=== PATIENT | female | born 1990 | race Caucasian/White ===

== ENCOUNTER 2017-01-14 21:45 | Inpatient (IN) ==
[2017-01-14] MEDS ORDERED: hydrOXYzine pamoate 25 MG CAPSULE PO PRN (22:15)
[2017-01-14] MEDS ORDERED: *HR* LORazepam 2 MG/ML VIAL IM PRN (22:15)
[2017-01-14] MEDS ORDERED: Mag Hydrox/Al Hydrox/Simeth 30 ML UDC PO PRN (22:15)
[2017-01-14] MEDS ORDERED: MOM Conc 10 ML UD.LIQ PO PRN (22:15)
[2017-01-14] MEDS ORDERED: Haloperidol Lactate 5 MG/ML VIAL IM PRN (22:15)
[2017-01-14] MEDS: traZODone 50 MG TABLET PO PRN (23:13)
--- NOTE | 2017-01-15 11:02 | Psychiatry History & Physical ---
Date of Encounter: 01/15/17 Time of Encounter: 10:00 History of Present Illness Patient Stated Chief Complaint: Suicidal, mood swings Medicare Admission Attestation: For traditional Medicare patients the provided hospital inpatient services are reasonable and necessary and in the case of services not specified as inpatient -only under 42 CFR 419.22 (n), that they are appropriately provided as inpatient services in accordance 42 CFR 412.3. For Critical Access Hospital the patient may reasonably be expected to be discharged or transferred to a hospital within 96 hours after admission to the Critical Access Hospital. Admitted From: Hospital to Hospital Transfer ([facility]) History of Present Illness: Ms. Garcia is a 26 year old female admitted from [facility] for evaluation of suicidal ideation and more swings with irritability. Patient experienced increasing irritability and mood swings and started having suicidal ideation with intent to cut her wrists or overdose on medication. Patient has been seen by a mental health counselor and started on Paxil by her family doctor but has not been seen by psychiatrist yet. Patient stated that she started having more changes was an anxiety since she was 20 years old, she had no previous hospitalization or psychiatric treatment. Patient denies any past suicide attempts. Patient described manic episodes with increased energy and irritability and hypersexuality. She also can have depressed episodes with low energy and depressed mood lack of motivation and a sense of hopelessness. Patient has significant family history of bipolar in both parents and history of suicide in a grandparent. She has high school education some college currently unemployed she is and she has 2 children. She denies smoking or drinking alcohol or drugs except using opiates on and off. Past Med Surg Social Fam HX - Past Medical History Medical history: no medical history - Past Psychiatric History Psychiatric history: Reports: no psych history - Social History Smoking Status: Never smoker Smokeless Tobacco Status: No Alcohol use: none Drug use: opiates Medications & Allergies Paroxetine HCl [Paxil] 40 mg PO DAILY 01/14/17 [History] Cetirizine HCl [Cetirizine HCl] 10 mg PO DAILY 01/15/17 [History] Allergies Hydromorphone [From Dilaudid] Allergy (Verified 01/11/17 18:27) Drowsy propranolol Allergy (Verified 01/11/17 18:27) Rash Review of Systems Psychiatric: Reports: depression, anxiety, abnormal sleep pattern, suicidal ideation, irritability, mood swings Mental Status Exam Patient orientation: Yes Person, Yes Time, Yes Place Level of alertness: Alert Patient appearance: Appropriate, Well Groomed Behavior: calm, cooperative Psychomotor activity: Normal Eye contact: Avoids Eye Contact Mood description: Euthymic/stable, Anxious, Labile Affect description: congruent with mood, labile Speech pattern: Normal rate, Normal rhythm, Normal tone Speech volume: Normal Thought process: Linear, Goal Oriented Thought content: Yes Suicidal ideation, No Homicidal ideation, No Overt delusions Perceptual disturbances: No Auditory hallucinations, No Visual hallucinations Attention span: Capable of Focused Attention Memory description: Grossly Intact Patient reliability: Reliable Historian Intelligence estimate: Average Judgment: Limited Insight: Partial Results - Vital Signs Vital signs: Temp Pulse Resp BP 97.5 F L 81 16 121/88 01/15/17 08:32 01/15/17 08:32 01/15/17 08:32 01/15/17 08:32 Assessment and Plan (1) Bipolar disorder, curr episode mixed, severe, w/o psychotic features Current visit: Yes Status: Acute Plan: Admit inpatient for safety and stabilization, Close observation, Suicide Precautions per unit protocol, Encourage participation in unit milieu, Group Therapy, Monitor sleep, Monitor appetite Additional Plan: Will add mood stabilizer Topamax 50 mg daily. Benefits and side effects were discussed she is agreeable to start and will monitor. Risks, benefits, side effects, alternatives discussed w/pt: Yes Patient agreeable to treatment: Yes Estimated Length of Stay (Days): 5
[2017-01-15] MEDS: Ibuprofen 400 MG TABLET PO PRN ×2 (15:09→21:35)
[2017-01-15] MEDS: Topiramate 25 MG TABLET PO SCH (15:42)
[2017-01-15] MEDS: traZODone 50 MG TABLET PO PRN ×2 (20:40→22:22)
[2017-01-15] MEDS: *HR* LORazepam 1 MG TABLET PO PRN (22:57)
[2017-01-16] MEDS: Topiramate 25 MG TABLET PO SCH (09:55)
--- NOTE | 2017-01-16 11:29 | Psychiatry Progress Note ---
Date of Encounter: 01/16/17 Time of Encounter: 11:00 Subjective Interval history: Patient is here for follow-up. She reports difficulty sleeping, also she had an episode of anxiety and was given lorazepam and it helped. She tell me that she has not anxiety or panic attacks on and off about twice a week, she believe its not triggered. Episodes may last about 15 minutes. She denied any side effects from medication and denies any suicidal ideation. She started participating in groups and activities and feel less anxious in groups. She was educated about bipolar disorder and medication compliance. Review of Systems Psychiatric: Reports: depression, anxiety, abnormal sleep pattern, suicidal ideation, irritability, mood swings Objective: Exam Patient orientation: Yes Person, Yes Time, Yes Place Level of alertness: Alert, Sedated Patient appearance: Appropriate, Well Groomed Behavior: calm, cooperative Psychomotor activity: Normal Eye contact: Maintains Eye Contact Mood description: Euthymic/stable Affect description: congruent with mood, full range Speech pattern: Normal rate, Normal rhythm, Normal tone Speech volume: Normal Thought process: Linear, Goal Oriented Thought content: No Suicidal ideation, No Homicidal ideation, No Overt delusions Perceptual disturbances: No Auditory hallucinations, No Visual hallucinations Judgment: Fair Insight: Partial Results - Vital Signs Vital Signs: Temp Pulse Resp BP 97.4 F L 84 16 114/78 01/16/17 09:00 01/16/17 09:00 01/16/17 09:00 01/16/17 09:00 Assessment and Plan (1) Bipolar disorder, curr episode mixed, severe, w/o psychotic features Current visit: Yes Status: Acute Plan: Continue hospitalization, Close observation, Suicide Precautions per unit protocol, Encourage participation in unit milieu, Group Therapy, Monitor sleep, Monitor appetite Additional Plan: Will increase trazodone to 100 mg at bedtime when necessary. Risks, benefits, side effects, alternatives discussed w/pt: Yes Patient agreeable to treatment: Yes Consult Discharge Plan - Plan Referrals: NO,PCP [Primary Care Provider] -
[2017-01-16] MEDS ORDERED: traZODone 50 MG TABLET PO PRN (11:31)
[2017-01-16] MEDS: Ibuprofen 400 MG TABLET PO PRN ×2 (11:49→21:31)
[2017-01-16] MEDS: *HR* LORazepam 1 MG TABLET PO PRN (20:50)
[2017-01-17] MEDS: Topiramate 25 MG TABLET PO SCH (09:38)
[2017-01-17 10:18] VITALS: BP 114/84
--- NOTE | 2017-01-17 13:38 | Discharge Summary ---
Date of Encounter: 01/17/17 Time of Encounter: 13:34 Diagnosis - Discharge Diagnosis (1) Bipolar disorder, curr episode mixed, severe, w/o psychotic features Status: Acute Medications - Discharge Medications Prescriptions: Cetirizine HCl 10 mg PO DAILY #30 tablet HydrOXYzine Pamoate 25 mg PO TID PRN #90 capsule PRN Reason: Anxiety Paroxetine HCl [Paxil] 40 mg PO DAILY #30 tablet Topiramate [Topamax] 50 mg PO DAILY #60 tablet TraZODone 100 mg PO HS PRN #60 tablet PRN Reason: Insomnia Cetirizine HCl 10 mg PO DAILY #30 tablet 01/17/17 [Rx] HydrOXYzine Pamoate 25 mg PO TID PRN #90 capsule 01/17/17 [Rx] Paroxetine HCl [Paxil] 40 mg PO DAILY #30 tablet 01/17/17 [Rx] Topiramate [Topamax] 50 mg PO DAILY #60 tablet 01/17/17 [Rx] TraZODone 100 mg PO HS PRN #60 tablet 01/17/17 [Rx] Allergies Hydromorphone [From Dilaudid] Allergy (Verified 01/11/17 18:27) Drowsy propranolol Allergy (Verified 01/11/17 18:27) Rash Provider Date of admission: 01/14/17 22:15 Primary care physician: PCP AGATHA Discharging clinician: Yenny Hills Assessment and Plan - Patient/Caregiver Discharge Instructions Activity: resume usual activities as tolerated Diet: regular diet - Follow up Plan Follow up with: AGATHA,PCP [Primary Care Provider] - Functional capacity at discharge: independent ambulation Overall status at discharge: Stable Disposition: Home, Self-Care Hospital Course Hospital course: Ms. Garcia is a 26 year old female who was admitted secondary to anxiety, depression and suicidal ideation. She was working with a counselor and she was waiting to see a psychiatrist but felt she should get on medications sooner than her appointment was scheduled for. She reported starting treatment for depression and anxiety at the age of 20 years and had started Paxil three months ago with some benefit. Topamax was added to her medication regimen this admission with positive results. She also took prn Vistaril and Trazodone with positive results. She lives with her slime ad reports he is supportive. The director social welfare spoke with her fiancee and he has no concerns with her coming home. She also reports her family is supportive of her as well. On exam she was pleasant with no signs of psychosis or major mood disturbance. She specifically denied any suicidal or homicidal ideation. - Time Spent with Patient Total time spent providing and/or coordinating discharge services: Quality - Multiple Antipsychotics Patient discharged on 2 or more antipsychotic medications: No Mental Status Exam - Mental Status Exam Patient orientation: Yes Person, Yes Time, Yes Place Level of alertness: Alert Patient appearance: Appropriate, Well Groomed Behavior: calm Psychomotor activity: Normal Eye contact: Maintains Eye Contact Mood description: Euthymic/stable Affect description: congruent with mood, full range Speech pattern: Normal rate, Normal rhythm, Normal tone Speech Volume: Normal Thought process: Linear, Goal Oriented Thought Content: No Suicidal ideation, No Homicidal ideation, No Overt delusions Perceptual Disturbances: No Auditory hallucinations, No Visual hallucinations Judgment: Fair Insight: Partial
== END 2017-01-17 17:15 | disposition home or self-care (01) | DRG 753 ==
LOC: 1ANU → SUATTDRO 22:15
PROVIDERS: ADMIT Psychiatry & Neurology Psychiatry; ATTEND Psychiatry & Neurology Psychiatry